=== PATIENT | female | born 1965 | race Caucasian/White ===

== ENCOUNTER 2017-05-31 18:06 | Emergency (ER) | payer SELFPAY ==
[~2017-05-31] VITALS: Ht 170.2 cm; Wt 93.2 kg
[2017-05-31] MEDS ORDERED: FLEXERIL5 MG PO (20:47)
[2017-05-31] MEDS ORDERED: NORCO 5/3251 TABLET PO (20:47)
[2017-05-31 20:59] VITALS: BP 152/102
== END 2017-05-31 21:00 | disposition home or self-care (01) ==
LOC: EME 18:06
DX: M54.5 Low back pain (principal)
CPT/HCPCS: 99281; 99283

== ENCOUNTER 2017-06-11 22:21 | Emergency (ER) | payer SELFPAY ==
[~2017-06-11] VITALS: Ht 170.2 cm; Wt 92.0 kg
[~2017-06-11 22:21] MED LIST: FLEXERIL5 MG PO; NORCO 5/3251 TABLET PO
[2017-06-11] MEDS ORDERED: NORCO 5/3251 TABLET PO (23:29)
[2017-06-11] MEDS ORDERED: ZOFRAN ODT4 MG PO (23:29)
[2017-06-11] MEDS ORDERED: FLEXERIL10 MG PO (23:29)
[2017-06-11 23:45] VITALS: BP 148/100
== END 2017-06-11 23:52 | disposition home or self-care (01) ==
LOC: EME 22:21
DX: M26.601 Right temporomandibular joint disorder, unspecified (principal); M79.7 Fibromyalgia; S16.1XXA Strain of muscle, fascia and tendon at neck level, initial encounter; X58.XXXA Exposure to other specified factors, initial encounter; Z87.828 Personal history of other (healed) physical injury and trauma; G89.29 Other chronic pain; E78.5 Hyperlipidemia, unspecified; I10 Essential (primary) hypertension; I25.2 Old myocardial infarction; F17.200 Nicotine dependence, unspecified, uncomplicated
CPT/HCPCS: 72040; 99281; 99284